=== PATIENT | male | born 2005 | race Caucasian/White ===

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

== ENCOUNTER 2024-08-31 11:36 | Inpatient (IN) | payer OTHER ==
[2024-08-31] MEDS: Acetaminophen 500 MG Tab PO STA (13:34)
[2024-08-31] MEDS: Sodium Chloride 0.9% 1,000 ML IV STA ×4 (13:34→15:47)
[2024-08-31] MEDS: Ibuprofen 800 MG Tab PO STA (13:34)
[2024-08-31] MEDS: cefTRIAXone 2 GM in Sodium Chloride 0.9% 50 ML IV STA (13:34)
[2024-08-31 13:38] LABS: BASOPHILS ABSOLUTE AUTO 0.02 K/uL (0.00-0.30); BASOPHILS PERCENT AUTO 0.2 % (0.0-1.0); HEMATOCRIT 42.1 % (42.0-52.0); HEMOGLOBIN 14.5 g/dL (14.0-18.0); IMMATURE GRAN ABSOLUTE AUTO 0.03 K/uL (0.00-0.05); IMMATURE GRAN PERCENT AUTO 0.3 % (0.0-0.4); LYMPHOCYTES ABSOLUTE AUTO 0.61 K/uL (2.00-8.80); MEAN CORPUSCULAR HEMOGLOBIN 26.4 pg (28.0-32.0); MEAN CORPUSCULAR HGB CONC 34.4 g/dL (32.0-36.0); MEAN CORPUSCULAR VOLUME 76.7 fL (83.0-99.0); MEAN PLATELET VOLUME 10.8 fL (9.4-12.4); MONOCYTES ABSOLUTE AUTO 0.59 K/uL (0.10-1.40); MONOCYTES PERCENT AUTO 6.7 % (2.0-10.0); NEUTROPHILS ABSOLUTE AUTO 7.52 K/uL (1.50-8.50); NEUTROPHILS PERCENT AUTO 85.8 % (35.0-45.0); PLATELET COUNT,PLT 207 K/uL (150-400); RED BLOOD CELL COUNT 5.49 M/uL (4.52-5.90); WHITE BLOOD CELL COUNT,WBC 8.77 K/uL (4.5-13.5)
[2024-08-31 14:05] LABS: A/G RATIO 0.7 (0.9-1.6); ALBUMIN 3.3 g/dL (3.4-5.0); BILIRUBIN TOTAL 0.5 mg/dL (0.2-1.0); CALCIUM 9.3 mg/dL (8.5-10.1); CREATININE 1.2 mg/dL (0.8-1.3); EST CRCL DRUG DOSING (CG) 118.34 mL/min; POTASSIUM,K 4.1 mmol/L (3.5-5.1); PROTEIN TOTAL,TP 8.3 g/dL (6.4-8.2)
[2024-08-31] MEDS: Iopamidol 755 MG/ML 500 ML Multipack Bottle IVPUSH STA (14:34)
[2024-08-31] MEDS: Azithromycin 250 MG Tab PO STA (14:47)
[2024-08-31] MEDS: Albuterol 0.083% 2.5 MG/3 ML Neb Soln NEB STA (15:59)
[2024-08-31] MEDS: Albuterol/Ipratropium 3.0-0.5 MG/3 ML Neb Soln NEB STA (16:00)
[2024-08-31 17:05] LABS: AMPHETAMINES SCREEN, URINE NEGATIVE (CUTOFF=500); BARBITURATE SCREEN,URINE NEGATIVE (CUTOFF=200); BENZODIAZEPINES SCREEN,URINE NEGATIVE (CUTOFF=150); BUPRENORPHINE SCREEN,URINE NEGATIVE (CUTOFF=10); METHADONE SCREEN, URINE NEGATIVE (CUTOFF=200); METHAMPHETAMINES SCREEN, URINE NEGATIVE (CUTOFF=500); OXYCODONE SCREEN,URINE NEGATIVE (CUT0FF=100); PCP SCREEN,URINE NEGATIVE (CUTOFF=25); THC SCREEN,URINE 20 NG/ML PRESUMPTIVE POSITIVE (CUTOFF=50)
[2024-08-31] MEDS ORDERED: Ondansetron 4 MG Tab.DIS PO PRN (17:16)
[2024-08-31] MEDS: Sodium Chloride 0.9% 1,000 ML IV ONE (19:34)
[2024-08-31] MEDS: Albuterol/Ipratropium 3.0-0.5 MG/3 ML Neb Soln NEB PRN (22:31)
[2024-08-31] MEDS: Acetaminophen 325 MG Tab PO PRN (22:35)
[2024-09-01 06:45] LABS: BASOPHILS ABSOLUTE AUTO 0.04 K/uL (0.00-0.30); BASOPHILS PERCENT AUTO 0.5 % (0.0-1.0); HEMATOCRIT 36.9 % (42.0-52.0); HEMOGLOBIN 12.6 g/dL (14.0-18.0); IMMATURE GRAN ABSOLUTE AUTO 0.03 K/uL (0.00-0.05); IMMATURE GRAN PERCENT AUTO 0.4 % (0.0-0.4); LYMPHOCYTES ABSOLUTE AUTO 1.12 K/uL (2.00-8.80); LYMPHOCYTES PERCENT AUTO 13.2 % (50.0-65.0); MEAN CORPUSCULAR HEMOGLOBIN 26.2 pg (28.0-32.0); MEAN CORPUSCULAR HGB CONC 34.1 g/dL (32.0-36.0); MEAN CORPUSCULAR VOLUME 76.7 fL (83.0-99.0); MEAN PLATELET VOLUME 11.1 fL (9.4-12.4); MONOCYTES ABSOLUTE AUTO 0.69 K/uL (0.10-1.40); MONOCYTES PERCENT AUTO 8.1 % (2.0-10.0); NEUTROPHILS PERCENT AUTO 77.8 % (35.0-45.0); PLATELET COUNT,PLT 184 K/uL (150-400); RED BLOOD CELL COUNT 4.81 M/uL (4.52-5.90); WHITE BLOOD CELL COUNT,WBC 8.48 K/uL (4.5-13.5)
[2024-09-01 07:07] LABS: A/G RATIO 0.7 (0.9-1.6); ALBUMIN 2.8 g/dL (3.4-5.0); BILIRUBIN TOTAL 0.5 mg/dL (0.2-1.0); CALCIUM 8.5 mg/dL (8.5-10.1); CARBON DIOXIDE,CO2 24.7 mmol/L (21.0-32.0); EST CRCL DRUG DOSING (CG) 142.01 mL/min; POTASSIUM,K 3.6 mmol/L (3.5-5.1)
[2024-09-01] MEDS: Potassium Chloride 20 MEQ Tab.ER PO ONE (11:07)
[2024-09-01] MEDS: Levalbuterol HCl 1.25 MG/3 ML Neb NEB ONE (11:08)
[2024-09-01 11:12] LABS: CHOLESTEROL HDL 15 mg/dL (40-60); CHOLESTEROL LDL CALCULATED 86 mg/dL (60-180); CHOLESTEROL TOTAL 131 mg/dL (50-200); CREATINE KINASE,CK 789 U/L (26-308); TRIGLYCERIDES 152 mg/dL (0-200); VLDL CHOLESTEROL 30 mg/dL (5-55)
[2024-09-01] MEDS: Codeine/guaiFENesin 10-100 MG/5 ML Syrup 5 ML Cup PO PRN (11:48)
[2024-09-01] MEDS: Polyethylene Glycol 3350 Powder 17 GM Packet PO SCH (11:48)
[2024-09-01 12:32] LABS: INR 1.11 (0.86-1.11); PTT,PARTIAL THROMBOPLSTIN TIME 33.6 SEC (23.9-30.7)
[2024-09-01 12:46] LABS: HIV12 AG/AB 4TH GEN W/REFLEX < 0.1 INDEX (<1.0)
[2024-09-01] MEDS ORDERED: cefTRIAXone 1 GM in Sodium Chloride 0.9% 50 ML IV SCH (13:00)
[2024-09-01] MEDS: cefTRIAXone 2 GM in Sodium Chloride 0.9% 50 ML IV SCH (13:52)
[2024-09-01] MEDS: Lactated Ringers 1,000 ML IV SCH (14:36)
[2024-09-01] MEDS: Azithromycin 500 MG in Sodium Chloride 0.9% 250 ML IV SCH (14:36)
[2024-09-01 17:25] LABS: BASOPHILS ABSOLUTE AUTO 0.03 K/uL (0.00-0.30); BASOPHILS PERCENT AUTO 0.4 % (0.0-1.0); EOSINOPHILS ABSOLUTE AUTO 0.01 K/uL (0.00-0.70); EOSINOPHILS PERCENT AUTO 0.1 % (0.0-5.0); HEMATOCRIT 37.7 % (42.0-52.0); HEMOGLOBIN 12.7 g/dL (14.0-18.0); IMMATURE GRAN ABSOLUTE AUTO 0.04 K/uL (0.00-0.05); IMMATURE GRAN PERCENT AUTO 0.5 % (0.0-0.4); LYMPHOCYTES ABSOLUTE AUTO 0.99 K/uL (2.00-8.80); MEAN CORPUSCULAR HEMOGLOBIN 26.1 pg (28.0-32.0); MEAN CORPUSCULAR HGB CONC 33.7 g/dL (32.0-36.0); MEAN CORPUSCULAR VOLUME 77.4 fL (83.0-99.0); MEAN PLATELET VOLUME 10.7 fL (9.4-12.4); MONOCYTES ABSOLUTE AUTO 0.55 K/uL (0.10-1.40); MONOCYTES PERCENT AUTO 7.2 % (2.0-10.0); NEUTROPHILS PERCENT AUTO 78.8 % (35.0-45.0); PLATELET COUNT,PLT 205 K/uL (150-400); RED BLOOD CELL COUNT 4.87 M/uL (4.52-5.90); WHITE BLOOD CELL COUNT,WBC 7.62 K/uL (4.5-13.5)
[2024-09-01 18:11] LABS: A/G RATIO 0.7 (0.9-1.6); ALBUMIN 2.8 g/dL (3.4-5.0); BILIRUBIN TOTAL 0.4 mg/dL (0.2-1.0); CALCIUM 8.5 mg/dL (8.5-10.1); CREATININE 0.8 mg/dL (0.8-1.3); EST CRCL DRUG DOSING (CG) 177.51 mL/min; POTASSIUM,K 3.6 mmol/L (3.5-5.1); PROTEIN TOTAL,TP 7.1 g/dL (6.4-8.2)
[2024-09-01 22:03] LABS: BORDETELLA PARAPERT IS1001 Not Detected (Not Detected)
[2024-09-02 06:50] LABS: BASOPHILS ABSOLUTE AUTO 0.05 K/uL (0.00-0.30); BASOPHILS PERCENT AUTO 0.6 % (0.0-1.0); EOSINOPHILS ABSOLUTE AUTO 0.07 K/uL (0.00-0.70); EOSINOPHILS PERCENT AUTO 0.8 % (0.0-5.0); HEMATOCRIT 38.5 % (42.0-52.0); HEMOGLOBIN 12.9 g/dL (14.0-18.0); IMMATURE GRAN ABSOLUTE AUTO 0.04 K/uL (0.00-0.05); IMMATURE GRAN PERCENT AUTO 0.5 % (0.0-0.4); LYMPHOCYTES ABSOLUTE AUTO 1.55 K/uL (2.00-8.80); LYMPHOCYTES PERCENT AUTO 18.3 % (50.0-65.0); MEAN CORPUSCULAR HEMOGLOBIN 26.1 pg (28.0-32.0); MEAN CORPUSCULAR HGB CONC 33.5 g/dL (32.0-36.0); MEAN CORPUSCULAR VOLUME 77.9 fL (83.0-99.0); MEAN PLATELET VOLUME 10.7 fL (9.4-12.4); MONOCYTES ABSOLUTE AUTO 0.66 K/uL (0.10-1.40); MONOCYTES PERCENT AUTO 7.8 % (2.0-10.0); NEUTROPHILS ABSOLUTE AUTO 6.12 K/uL (1.50-8.50); PLATELET COUNT,PLT 221 K/uL (150-400); RED BLOOD CELL COUNT 4.94 M/uL (4.52-5.90); WHITE BLOOD CELL COUNT,WBC 8.49 K/uL (4.5-13.5)
[2024-09-02 07:21] LABS: A/G RATIO 0.7 (0.9-1.6); ALBUMIN 2.9 g/dL (3.4-5.0); BILIRUBIN TOTAL 0.4 mg/dL (0.2-1.0); CARBON DIOXIDE,CO2 27.2 mmol/L (21.0-32.0); CREATININE 0.8 mg/dL (0.8-1.3); EST CRCL DRUG DOSING (CG) 177.51 mL/min; MAGNESIUM 2.1 mg/dL (1.8-2.4); POTASSIUM,K 3.6 mmol/L (3.5-5.1); PROTEIN TOTAL,TP 7.3 g/dL (6.4-8.2)
[2024-09-02 12:39] VITALS: BP 156/98; PULSE 90
[2024-09-06 05:07] LABS: CMV QNT BY NAAT, INTERP,PL Not Detected (Not Detected); CMV QNT BY NAAT, IU/ML,PL Not Detected; CMV QNT BY NAAT, LOGIU/ML,PL Not Detected log IU/mL
== END 2024-09-02 12:10 | disposition home or self-care (01) | DRG 194 ==
LOC: MW.ED 11:36 → MW.MS 16:36
PROVIDERS: ADMIT Family Medicine; ATTEND Family Medicine
DX: J18.9 Pneumonia, unspecified organism (principal); E87.1 Hypo-osmolality and hyponatremia; R16.1 Splenomegaly, not elsewhere classified; R00.0 Tachycardia, unspecified; R79.89 Other specified abnormal findings of blood chemistry; J45.909 Unspecified asthma, uncomplicated; E86.0 Dehydration
CPT/HCPCS: 36415; 71046; 71046-26; 71275; 71275-26; 80053; 80061; 80305-QW; 82550; 82728; 83605; 83690; 83735; 84484; 85025; 85379; 85610; 85730; 86308; 87040; 87389; 87428-QW; 87486; 87497; 87581; 87633; 87651-QW; 87899; 93005; 93010; 94640; 96361; 96365; 99284; 99285-25; A9270-GY; J0456; J0696; J3490; J7030; J7050; J7120; J7612-GY; J7620-GY; Q9967